=== PATIENT | female | born 1995 | race Caucasian/White ===

== ENCOUNTER → 2017-07-11 | Outpatient (REF) | payer OTHER | LOC: M SFHCWAGY 14:40 | DX: Z12.4 Encounter for screening for malignant neoplasm of cervix (principal) ==

== ENCOUNTER → 2017-09-20 | Outpatient (REF) | payer OTHER | LOC: M SFHCCAPE 16:16 | DX: J35.1 Hypertrophy of tonsils (principal) ==

== ENCOUNTER → 2018-06-26 | Outpatient (REF) | payer OTHER | LOC: M SFHCCAPE 13:06 | PROVIDERS: ATTEND Physician Assistant | DX: J02.9 Acute pharyngitis, unspecified (principal) ==

== ENCOUNTER → 2020-07-22 | Outpatient (REF) | payer OTHER | LOC: M SFHCWAGY 13:00 | PROVIDERS: ATTEND Nurse Practitioner Women's Health | DX: Z11.3 Encounter for screening for infections with a predominantly sexual mode of transmission (principal) ==

== ENCOUNTER → 2022-06-14 | Outpatient (REF) | payer OTHER | LOC: M WUC 11:26 | PROVIDERS: ATTEND Physician Assistant | DX: R30.0 Dysuria (principal) ==

== ENCOUNTER → 2022-06-21 | Outpatient (REF) | payer OTHER ==
[2022-06-22 18:07] LABS: ENDOMYSIAL ABY IgA Negative (Negative); TISSUE TRANSGLUTAMINASE IgA <2 U/mL (0-3)
== END ==
LOC: M LAB REF 12:22
PROVIDERS: ATTEND Internal Medicine
DX: R19.7 Diarrhea, unspecified (principal)

== ENCOUNTER → 2023-10-26 | Outpatient (REF) | payer OTHER | LOC: M PLALAB 08:09 | PROVIDERS: ATTEND Advanced Practice Midwife | DX: Z01.419 Encounter for gynecological examination (general) (routine) without abnormal findings (principal) ==

== ENCOUNTER → 2025-03-19 | Outpatient (CLI) | payer OTHER ==
[2025-03-19 15:13] LABS: PLATELET COUNT, AUTOMATED 226 10^3/uL (150-450)
[2025-03-19 16:15] LABS: HIV 1&2 SCREEN NEGATIVE (NEGATIVE)
[2025-03-19 16:23] LABS: HEPATITIS C VIRUS ABY INDEX 0.06 INDEX (<0.8); Trichomonas vaginalis (AMP) NOT DETECTED (NEGATIVE)
[2025-03-19 16:46] LABS: GC DNA AMPLIFICATION NEGATIVE (NEGATIVE)
== END ==
LOC: M PLALAB 13:50
PROVIDERS: ATTEND Advanced Practice Midwife
DX: Z36.89 Encounter for other specified antenatal screening (principal); Z3A.12 12 weeks gestation of pregnancy

== ENCOUNTER → 2025-04-22 | Outpatient (REF) | payer OTHER | LOC: M SFHCWAGY 10:18 | PROVIDERS: ATTEND Advanced Practice Midwife | DX: O35.10X0 Maternal care for (suspected) chromosomal abnormality in fetus, unspecified, not applicable or unspecified (principal) ==